=== PATIENT | female | born 2000 | race Two or more races ===

== ENCOUNTER → 2025-02-14 15:04 | Outpatient (REF) | payer OTHER, SELFPAY | LOC: RCS 15:04 | PROVIDERS: ATTENDING PHYSICIAN Internal Medicine Cardiovascular Disease; FAMILY PHYSICIAN Nurse Practitioner | DX: R00.0 Tachycardia, unspecified (principal) | CPT/HCPCS: 93306 ==

== ENCOUNTER → 2025-05-18 08:38 | Outpatient (REF) | payer OTHER, SELFPAY | LOC: RCS 08:38 | PROVIDERS: ATTENDING PHYSICIAN Internal Medicine Cardiovascular Disease; FAMILY PHYSICIAN Nurse Practitioner | DX: R00.0 Tachycardia, unspecified (principal) | CPT/HCPCS: 93225; 93226 ==